=== PATIENT | male | born 1995 | race African-American/Black ===

== ENCOUNTER 2017-10-09 23:11 | Emergency (ER) | payer SELFPAY ==
[~2017-10-09] VITALS: Ht 185.4 cm; Wt 110.0 kg
[2017-10-09 23:30] VITALS: BP 134/76; PULSE 101; RESP 14; TEMP 98.7; O2SAT 99
== END 2017-10-10 01:13 | disposition left against medical advice (07) ==
LOC: NEDAMB 23:11
DX: Z04.9 Encounter for examination and observation for unspecified reason (principal)
CPT/HCPCS: 99281

== ENCOUNTER 2018-08-02 13:14 | Observation (INO) ==
[2018-08-02] MEDS ORDERED: Lidocaine 1%/Epinephrine 1:100,000 Inj 20 ML Vial INFILTRATN ONE (13:17)
[2018-08-02] MEDS ORDERED: Tetanus/Diphtheria Toxoid Adult Vaccine Inj 0.5 ML Vial IM ONE (13:34)
--- NOTE | 2018-08-02 13:52 | ED ---
HPI General Chief Complaint: Wound/Laceration Stated Complaint: Injury Time Seen by Provider: 08/02/18 13:16 Source: patient Mode of arrival: ambulatory Limitations: no limitations History of Present Illness HPI narrative: 22-year-old male patient presents to the ER today because he states that he had punched through glass and has a laceration to his right forearm area. There is significant bleeding and large laceration there. He denies any other issues or injuries. Related Data Allergies Allergy/AdvReac Type Severity Reaction Status Date / Time No Known Allergies Allergy Unverified 10/10/17 01:08 Review of Systems ROS: all other systems reviewed are negative FORMERLY [facility] Medical History Medical History Fractured skull (Acute) Social History Social History Substance History: Active Abuse Second Hand Smoke Exposure: Yes Smoking Status: Current every day smoker Tobacco Type: Cigarettes How Often Do You Have a Drink Containing Alcohol: 2 to 3 times a week Recent Travel in [facility] within the Last 8 Weeks: No Recent Out of Country Travel within the Last 8 Weeks: No Substance Abuse Detail Marijuana: Substance Use Status: Active Route Used Substance Abuse: Inhalation Last Used: weekly Immunization History Tetanus Immunization: Unsure Hx Influenza Vaccine This Season: No Exam Narrative Exam Narrative: GENERAL: Well-nourished, well-developed young male patient in mild distress. Awake and oriented 3. SKIN: Focused skin assessment warm/diaphoretic. HEAD: Normocephalic. EYES: No scleral icterus. No injection or drainage. NECK: Supple, trachea midline. No JVD or lymphadenopathy. CARDIOVASCULAR: Regular rate and rhythm without murmurs, gallops, or rubs. RESPIRATORY: Breath sounds equal bilaterally. No accessory muscle use. GASTROINTESTINAL: Abdomen soft, non-tender, nondistended. MUSCULOSKELETAL: No cyanosis, or edema. Right forearm laceration: There is notable muscle belly and tendon seen and the initial evaluation of the laceration. Bleeding from the muscle belly. Positive radial pulses. He has weakness of the fourth and fifth digit flexion. Decreased sensation over the fourth and fifth digit. BACK: Nontender without obvious deformity. No CVA tenderness. Procedures Laceration Laceration 1: Site: upper extremity Side (If applicable): right Size (cm): 5 Description: irregular and contaminated Depth: simple, single layer, involves muscle layer and involves tendon Anesthetic used: lidocaine 1% Anesthesia technique:: local infiltration Amount (mL): 10 Pre-repair:: wound explored and irrigated extensively Muscle layer closed with: vicryl Size:: 3-0 Number of sutures: 1 Technique:: horizontal mattress Course Initial Documented Vital Signs Pulse Rate 111 H 08/02/18 13:20 Respiratory Rate 18 08/02/18 13:20 Blood Pressure 139/75 08/02/18 13:20 Pulse Oximetry 97 08/02/18 13:20 Last Documented Vital Signs Pulse Rate 71 08/02/18 14:45 Respiratory Rate 18 08/02/18 14:45 Blood Pressure 141/69 H 08/02/18 14:45 Pulse Oximetry 100 08/02/18 14:45 Medical Decision Making MDM Narrative Medical decision making narrative: Right forearm laceration with likely tendon injury. Case is discussed with Dr. Macias of hand surgery, and he states that he would do an x-ray to rule out foreign body, and would like to have the laceration cleaned out and repaired in the ER, foreign body removed, and patient to be sent into his clinic for follow-up. However, after my PA began exploring the wound, x-ray shows foreign body, and foreign body was removed, there was notable bleeding which appears to be brisk, had restarted, and is pulsatile in nature which makes me think that there may be an arterial injury. Case is once again discussed with Dr. Macias and at this point, he asked me to try a tourniquet for 15 minutes with direct pressure on the patient to see if the bleeding will resolved. It did not, and he had asked me to repair the patient for the OR, planning to admit the patient to same -day surgery under his service. Medical Screen Exam Complete: Yes Emergency Medical Condition: Yes Lab Data Result diagrams: 08/02/18 14:44 08/02/18 14:44 Lab Results 08/02/18 08/02/18 08/02/18 Range/Units 14:44 14:44 14:44 WBC 10.7 (4.0-11.0) th/mm3 RBC 4.63 (4.50-5.90) mil/mm3 Hgb 14.0 (13.0-17.0) gm/dL Hct 41.0 (39.0-51.0) % MCV 88.6 (80.0-100.0) fL MCH 30.3 (27.0-34.0) pg MCHC 34.2 (32.0-36.0) % RDW 14.2 (11.6-17.2) % Plt Count 152 (150-450) th/mm3 MPV 11.0 (7.0-11.0) fL Neut % (Auto) 79.9 H (16.0-70.0) % Lymph % (Auto) 12.1 (9.0-44.0) % [place] % (Auto) 5.9 (0.0-8.0) % Eos % (Auto) 1.4 (0.0-4.0) % Baso % (Auto) 0.7 (0.0-2.0) % Neut # (Auto) 8.5 H (1.8-7.7) th/mm3 Lymph # (Auto) 1.3 (1.0-4.8) th/mm3 [place] # (Auto) 0.6 (0.0-0.9) th/mm3 Eos # (Auto) 0.1 (0.0-0.4) th/mm3 Baso # (Auto) 0.1 (0.0-0.2) th/mm3 WBC Differential . Differential Comment Auto diff final PT 10.8 (9.8-11.6) sec INR 1.1 Ratio Sodium 145 (136-145) meq/L Potassium 3.4 L (3.5-5.1) meq/L Chloride 109 H (98-107) meq/L Carbon Dioxide 25.4 (21.0-32.0) meq/L Anion Gap 11 (5-15) meq/L BUN 8 (7-18) mg/dL Creatinine 1.14 (0.60-1.30) mg/dL Estimated GFR Greater than 89 (>89) mL/min Random Glucose 110 H (74-106) mg/dL Calcium 8.8 (8.5-10.1) mg/dL Imaging Data Radiologist's impression: Forearm X-Ray 08/02/18 13:32 CONCLUSION: Large piece apparent glass in the laceration. Discharge Plan Discharge Disposition Patient Disposition: Discharge Home Discharge Condition Condition: Stable Discharge Details Anticipated Discharge Date: 08/02/18 Diagnosis: Flexor tendon laceration, wrist, open wound Physicians Team ED Provider: Norma Henriquez ED Midlevel Provider: Chester Sutton Primary Care Provider: Primary Care Nichole Mohan Attending Provider: Jostin Brice Status ED Status: Admitted Patient
--- NOTE | 2018-08-02 14:11 | XR ---
EXAM DATE: 08/02/2018 1:54 PM EDT AGE/SEX: 22 years / Male INDICATIONS: Right forearm after punching a window today. Evaluate for foreign body. CLINICAL DATA: This is the patient's initial encounter. Patient reports that signs and symptoms have been present for 1 day and indicates a pain score of 7/10. MEDICAL/SURGICAL HISTORY: None. None. COMPARISON: No prior exams available for comparison. FINDINGS: Radiopaque foreign body in the laceration consistent with glass. There is no fracture. CONCLUSION: Large piece apparent glass in the laceration. Electronically signed by: Luis Smith MD 08/02/2018 2:09 PM EDT
[2018-08-02] MEDS ORDERED: Sod Chloride 0.9% Inj 1,000 ML IV.SIG SCH (14:30)
[2018-08-02] MEDS ORDERED: Neomycin/Polymyxin G.U. Irrigant 1 ML Ampul ONE (14:55)
[2018-08-02 15:40] LABS: Baso # (Auto) 0.1 th/mm3 (0.0-0.2); Baso % (Auto) 0.7 % (0.0-2.0); Eos # (Auto) 0.1 th/mm3 (0.0-0.4); Eos % (Auto) 1.4 % (0.0-4.0); Lymph # (Auto) 1.3 th/mm3 (1.0-4.8); Lymph % (Auto) 12.1 % (9.0-44.0); Mean Corpuscular HGB Conc 34.2 % (32.0-36.0); Mean Corpuscular Hemoglobin 30.3 pg (27.0-34.0); Mean Corpuscular Volume 88.6 fL (80.0-100.0); Mono # (Auto) 0.6 th/mm3 (0.0-0.9); Mono % (Auto) 5.9 % (0.0-8.0); Neut # (Auto) 8.5 th/mm3 (1.8-7.7); Neut % (Auto) 79.9 % (16.0-70.0); Platelet Count 152 th/mm3 (150-450); Red Blood Count 4.63 mil/mm3 (4.50-5.90); Red Cell Distribution Width 14.2 % (11.6-17.2); White Blood Count 10.7 th/mm3 (4.0-11.0)
[2018-08-02 15:48] LABS: INR 1.1 Ratio; Prothrombin Time 10.8 sec (9.8-11.6)
[2018-08-02] MEDS ORDERED: Succinylcholine Inj 100 MG/5 ML Syringe IV.PUSH ONE (15:55)
[2018-08-02] MEDS ORDERED: Normosol-R pH 7.4 Inj 1,000 ML IV.CONT ONE (15:55)
[2018-08-02] MEDS ORDERED: Glycopyrrolate Inj 1 MG/5 ML Syringe IV.PUSH ONE (15:55)
[2018-08-02] MEDS ORDERED: Neostigmine Inj 5 MG/5 ML Syringe IV.PUSH ONE (15:55)
[2018-08-02] MEDS ORDERED: Lidocaine PF 1% Inj 5 ML Syringe INFILTRATN ONE (15:55)
[2018-08-02 15:56] LABS: Anion Gap 11 meq/L (5-15); Blood Urea Nitrogen 8 mg/dL (7-18); Calcium 8.8 mg/dL (8.5-10.1); Carbon Dioxide 25.4 meq/L (21.0-32.0); Chloride 109 meq/L (98-107); Glomerular Filtration Rate Greater Than 89 mL/min (>89); Glucose,Random 110 mg/dL (74-106); Potassium 3.4 meq/L (3.5-5.1); Sodium 145 meq/L (136-145)
[2018-08-02] MEDS ORDERED: Heparin - SQ 10,000 UNITS/ML Vial ONE (17:07)
[2018-08-02] MEDS ORDERED: Lidocaine 2% Inj 50 ML Vial ONE (18:23)
[2018-08-02] MEDS ORDERED: Bupivacaine PF 0.5% Inj 30 ML Vial ONE (20:00)
[2018-08-02] MEDS ORDERED: Dexamethasone PF Inj 10 MG/ML Vial ONE (20:00)
[2018-08-02] MEDS ORDERED: Morphine Inj 4 MG/ML Vial ONE (20:12)
[2018-08-02] MEDS ORDERED: fentaNYL Citrate Inj 100 MCG/2 ML Ampul ONE (20:12)
[2018-08-02] MEDS: Ketorolac Inj 30 MG/ML (IVP) Vial IV.PUSH SCH (20:30)
[2018-08-02] MEDS ORDERED: Aspirin 325 MG Tablet PO SCH (20:30)
[2018-08-02] MEDS ORDERED: Ketorolac Inj 30 MG/ML (IVP) Vial ONE (20:45)
[2018-08-02] MEDS ORDERED: ceFAZolin Inj 2,000 MG in Sodium Chlor 0.9% Inj 100 ML IV.SIG ONE (21:00)
[2018-08-02] MEDS ORDERED: Morphine Sulfate Inj 2 MG/ML Vial IV.PUSH PRN (21:15)
[2018-08-03] MEDS: Ketorolac Inj 30 MG/ML (IVP) Vial IV.PUSH SCH ×2 (02:14→08:31)
[2018-08-03 05:12] VITALS: O2SAT 97
--- NOTE | 2018-08-03 08:18 | P.PNOP ---
Subjective Interval history: Date of Surgery: 08/02/2018 Right ulnar nerve repair Right ulnar artery repair Right FDS/FDP repair to IF, MF, RF, SF Right FCU repair Wally is doing well this morning. His pain is well controlled. Endorses paresthesias in the ulnar nerve distribution. Physical Exam Vital signs: Vital Signs 08/02/18 13:20 08/02/18 13:24 08/02/18 14:45 Temperature Pulse Rate 111 H 103 H 71 Respiratory Rate 18 18 18 Blood Pressure 139/75 139/75 141/69 H Pulse Oximetry 97 97 100 08/02/18 20:27 08/02/18 20:30 08/02/18 21:01 Temperature 97.2 F L Pulse Rate 101 H 91 H 83 Respiratory Rate 17 10 L 10 L Blood Pressure 124/73 126/70 132/73 Pulse Oximetry 99 100 96 08/02/18 21:15 08/03/18 00:00 08/03/18 04:00 Temperature 97.5 F L 97.4 F L 98.0 F Pulse Rate 75 83 92 H Respiratory Rate 10 L 16 18 Blood Pressure 128/73 132/83 133/63 Pulse Oximetry 99 98 97 Intake & Output 08/02/18 08/03/18 08/03/18 18:59 06:59 18:59 Intake Total 2220 / 2220 Output Total 100 / 100 Balance 2120 / 2120 Weight 122.47 kg 122.47 kg Intake: IV 220 / 220 Ancef Inj 1,000 MG In NS Inj 100 / 100 100 ML @ 200 mls/hr IV.SIG Q8H [facility] Rx#:[id number] Ancef Inj 2,000 MG In NS Inj 120 / 120 100 ML @ 240 mls/hr IV.SIG NOW ONE Rx#:[id number] Anesthesia Amount 1999 / 1999 Output: Estimated Blood Loss 100 / 100 Other: # Voids 3 Weight On Admission 122.47 kg - Constitutional no acute distress - Routine Extremities Exam Comments: Focused evaluation of the right upper extremity demonstrates post-op dorsal blocking splint in tact. Fingers exposed, warm, well perfused. BCR <2s. Dense motor block precludes motor eval. Sensation in tact to median and radial distribution. Diminished to ulnar nerve distribution. Results - Labs CBC & Chem 7: 08/02/18 14:44 08/02/18 14:44 Laboratory Results - last 24 hr 08/02/18 08/02/18 08/02/18 14:44 14:44 14:44 WBC 10.7 RBC 4.63 Hgb 14.0 Hct 41.0 MCV 88.6 MCH 30.3 MCHC 34.2 RDW 14.2 Plt Count 152 MPV 11.0 Neut % (Auto) 79.9 H Lymph % (Auto) 12.1 [place] % (Auto) 5.9 Eos % (Auto) 1.4 Baso % (Auto) 0.7 Neut # (Auto) 8.5 H Lymph # (Auto) 1.3 [place] # (Auto) 0.6 Eos # (Auto) 0.1 Baso # (Auto) 0.1 WBC Differential . Differential Comment Auto diff final PT INR Sodium 145 Potassium 3.4 L Chloride 109 H Carbon Dioxide 25.4 Anion Gap 11 BUN 8 Creatinine 1.14 Estimated GFR Greater than 89 Random Glucose 110 H Calcium 8.8 Blood Type A Positive Blood Type Recheck Required Antibody Screen Negative 08/02/18 14:44 WBC RBC Hgb Hct MCV MCH MCHC RDW Plt Count MPV Neut % (Auto) Lymph % (Auto) [place] % (Auto) Eos % (Auto) Baso % (Auto) Neut # (Auto) Lymph # (Auto) [place] # (Auto) Eos # (Auto) Baso # (Auto) WBC Differential Differential Comment PT 10.8 INR 1.1 Sodium Potassium Chloride Carbon Dioxide Anion Gap BUN Creatinine Estimated GFR Random Glucose Calcium Blood Type Blood Type Recheck Antibody Screen - Imaging Impressions Forearm X-Ray 08/02/18 13:32 CONCLUSION: Large piece apparent glass in the laceration. Assessment and Plan - Ortho Post Op Day # 1 - Assessment and Plan s/p the above procedures. Doing well. Hand well perfused. Sensation diminished, as expected, to ulnar nerve distribution. - NWB to the RUE - Encourage RUE elevation for edema control - Continue ASA x 4 weeks - Multi-modal pain control - Discussed surgery in detail with patient, including partial ulnar nerve lac and multiple tendon involvement. He understands the challenging progonosis for ulnar nerve recovery. - He will follow up in our clinic in 2 weeks for post-op visit. All questions/ concerns addressed.
[2018-08-03 09:00] VITALS: BP 117/67; PULSE 101; RESP 16; TEMP 97.7
--- NOTE | 2018-08-09 08:21 | MP ---
PLEASE SEE OTHER OP REPORT. THIS ONE ENTERED IN ERROR. MTDD
--- NOTE | 2018-08-10 14:02 | MP ---
cc: ,Hipolito Brice DATE OF OPERATION: 08/02/2018 DATE OF SERVICE: 08/02/2018 PREOPERATIVE DIAGNOSES: 1. Right wrist traumatic laceration. 2. Right wrist uncontrolled bleeding secondary to arterial bleed. 3. Right ulnar nerve neurapraxia. POSTOPERATIVE DIAGNOSES: 1. Right forearm traumatic laceration secondary to glass injury. 2. Right ulnar artery laceration at the forearm level. 3. Right ulnar nerve 50% partial laceration at the forearm level. 4. Right flexor carpi ulnaris tendon laceration. 5. Right flexor digitorum superficialis laceration of the index, middle, ring, and small fingers. 6. Right flexor digitorum profundus lacerations, zone 5, of the middle ring, and small fingers. OPERATION PERFORMED: 1. Right forearm exploration of penetrating wound. 2. Right forearm irrigation and debridement of penetrating wound. 3. Right ulnar artery repair at the forearm level. 4. Right ulnar nerve repair at the forearm level. 5. Repair of right flexor carpi ulnaris. 6. Repair of flexor digitorum superficialis tendon to the index, middle, ring, and small fingers. 7. Repair of right extensor flexor digitorum profundus tendon to the middle, ring, and small fingers. 8. Exploration of median nerve. 9. Use of operating room microscopy. SURGEON: Hipolito Mullins MD ANESTHESIA: General. FLUIDS: Per anesthesia record. ESTIMATED BLOOD LOSS: 200 mL. SPECIMENS: None. IMPLANTS: Axogen AxoGuard nerve protector. COMPLICATIONS: None. INDICATIONS FOR PROCEDURE: Please see history and physical for complete details. In summary, Mr. Eastman is a 22-year-old right-hand dominant male. He presented to the [facility] emergency department after punching a glass window. He sustained a traumatic laceration to the volar forearm. Hand surgery consultation was requested. Evaluation was significant for a traumatic laceration extending over the volar forearm with uncontrolled bleeding. He was taken urgently back to the operating room for the above procedures. In the preoperative holding area, we had a thorough discussion with Mr. Eastman regarding recommendations for wound exploration and repair of damaged structures. We discussed that this would involve likely nerve, artery, and tendon. He has significant paresthesias in the ring and small finger. Median nerve sensory examination was intact. A comprehensive motor examination was not able to be obtained secondary to the patient's pain level. We discussed the relative risks, benefits, and expected postoperative course of surgical management. Specifically, we discussed that his injury is a devastating injury and will likely associated with significant challenges. Given the anticipated injury to the ulnar nerve, he may have a lifelong weakness and intrinsic atrophy. Other risks include, but are not limited to, damage to surrounding blood vessels and nerves, infection, wound healing issues, finger stiffness, continued pain, and need for future surgery. After ample opportunity was offered for his questions to be answered and all his questions were answered to his apparent satisfaction. He agreed to proceed with the procedure as per consent. DESCRIPTION PROCEDURE: The patient was identified at the OR front office java developer and the operative site was marked. The patient was then brought back to the operating room under the care of the anesthesiology team and positioned supine on the OR table. All bony prominences were padded. A critical timeout was performed during which the patient's identity, site, and the nature of the procedure was confirmed. General anesthesia was then induced without untoward effect and endotracheal intubation was performed. Prophylactic perioperative antibiotics in the form of cefazolin were administered. The right upper extremity was prepped and draped in the routine strict and sterile fashion using triple prep solution and occlusive draping. The upper extremity was exsanguinated and the pneumatic tourniquet was then inflated to 250 mmHg and remained inflated for the duration of the case of approximately 2 hours and 15 minutes. The laceration extended in an oblique fashion, approximately 8 cm in length, at the level of the mid forearm. The laceration was extended more than an incision both distal and proximal in order to explore the wound. Sharp dissection was carried through skin. Blunt dissection was then continued with curved iris scissors in order to perform a comprehensive evaluation of the penetrating laceration. FINDINGS ARE FOLLOWS: Significant for complete laceration of the flexor digitorum superficialis tendon to the index, middle, ring, and small finger. Flexor digitorum profundus tendon to the middle, ring, and small finger and flexor carpi ulnaris laceration. The FPL, flexor digitorum profundus to the index finger, and flexor carpi radialis remained intact. Additionally, there was a partial laceration involving approximately 50% of the ulnar nerve and a complete transection of the ulnar artery. Following this evaluation attention was turned to debridement of the wound and irrigation. Three liters normal saline solution were run through the wound to perform this irrigation and debridement. Attention was then turned to repair of the ulnar artery. The operating room microscope was brought into the field and positioned appropriately. A background was placed underneath the artery. The artery was transected obliquely, this cut was revised with a pair of sharp serrated scissors. The artery was then placed in a bulldog vascular clamp and approximated. An end-to-end repair of the artery was performed using 8-0 nylon in a simple fashion under microscopic visualization. Prior to the repair, attention was turned to dilation of the vessel with a lacrimal probe. Additionally, dilute heparin was also placed within the vessel to clear additional clot. Prior to repair additionally, the tourniquet was released to ensure that the vessel was perfused and adequately bleeding. The repair was then undertaken again with 8-0 nylon. The vascular clamp was removed and the tourniquet was then let down. There was excellent perfusion across the vessel with no evidence of significant leak or deficits in flow. This completed the ulnar artery repair. Repair of the ulnar nerve was then undertaken. This was also performed under microscopic magnification. The epineurium was reapproximated and then repaired with 8-0 nylon in a simple fashion. This was performed with approximately 5 simple sutures. Then an Axogen AxoGuard nerve protector was then wrapped around the nerve and secured loosely with vascular clamps. This completed the ulnar nerve repair. Attention was then turned to repair of the flexor tendon. The flexor carpi ulnaris tendon was reapproximated and repair was then undertaken with looped 3-0 Supramid. A double modified Stuart stitch was used to facilitate an 8-strand repair of the tendon. Additionally, a simple Stuart stitch was also placed with 3-0 Ethibond suture. Attention was then turned to identification of the flexor digitorum profundus tendon. These tendon slips were then reapproximated to the distal end of the tendon with the fingers in flexion and the wrist in flexion. An end-to-end repair was then undertaken with the tendon stumps appropriately positioned and tendon repair was then undertaken again, with 3 looped Supramid suture. A modified Stuart stitch was again utilized for this repair. The Supramid suture was first placed proximally along the ulnar extent of the tendon then locked. It was shuttled through the proximal tendon, through the distal stump, and then back through the end of the distal tendon. A second 3-0 Supramid was then placed at the distal radial and of the tendon, approximately 1 cm from the stump. It was locked and then shuttled proximally through the distal to proximal end of the stump and back through the proximal end to the site of repair. The double looped suture was then cut and 2 individual knots were then tied to tension the repair. This resulted in excellent reapproximation of the flexor digitorum profundus to the middle finger. This repair was then undertaken again for the flexor digitorum profundus to the middle and then to the small finger. A similar stitch was utilized for both of these repairs. Then, attention was turned to the flexor digitorum superficialis. Again, a modified Stuart stitch was utilized to facilitate this repair. This was performed to the index, middle, ring, and small fingers of digitorum superficialis, tendon flexed. Care was taken to maintain passive flexion of the fingers and passive flexion of the wrist to unload the repair site. This completed the repair of the aforementioned tendons. The wound was then again thoroughly irrigated with normal saline solution. The tourniquet had been let down throughout the duration of the case after the ulnar artery repair. There was evidence of brisk capillary refill to the fingers. The radial pulse was intact, as was the ulnar pulse. There was maintained perfusion across the anastomosis site. Attention was then turned to irrigation of the wound and wound closure. The wound was reapproximated and closed with 3-0 Prolene in a horizontal mattress fashion. A dry sterile dressing consisting of Xeroform, 4 x 4 gauze, burned fluff, and a dorsal blocking splint with the in 15 degrees of flexion, MP joint, 90 degrees of flexion, and PIP and DIP joint approximately 30 degrees of flexion was placed. This completed the case. At the conclusion of the case, all sponge and instrument counts were correct x2. DISPOSITION: The patient was reversed from anesthesia and extubated. He was transferred to the PACU in stable condition. POSTOPERATIVE RECOMMENDATIONS: 1. Strict nonweightbearing to the right upper extremity. 2. Maintain upper extremity elevation for edema control. 3. Maintain upper extremity dressings in place until clinic followup. 4. Plan for clinic followup in 1 week. We will plan for removal of splint at that time with transition to a dorsal blocking splint and early range of motion program of the zone 5 flexor tendon repairs. At this point the care was discussed with the patient's significant other in the PACU. All questions and concerns were addressed to her apparent satisfaction. Hipolito Brice MD, CM/gale , 01:04 PM , 01:32 PM
--- NOTE | 2018-08-29 17:26 | MH ---
cc: Hipolito LYLES DATE OF ADMISSION: 08/02/2018 PHYSICIAN NOTE: The H and P on the patient was completed at the time of service on 08/02/2018. The dictated documentation has been lost within the electronic health record. As such, I am being asked to redictate my history and physical examination that was previously dictated on 08/02/2018. CHIEF COMPLAINT: Right forearm laceration. HISTORY OF PRESENT ILLNESS: Mr. Eastman is a 22-year-old right-hand dominant male who presented to [facility] with complaints of a right volar forearm laceration. He noted that he punched a glass window, resulting in a deep penetrating laceration to the volar forearm. Orthopedic Hand Surgery consultation was requested. I met Mr. Eastman in the preoperative holding area, transferred from the ER today to the OR suite for uncontrolled bleeding. On evaluation, he had significant pain to the right upper extremity with a tourniquet in place to control the bleeding. He additionally was noted to have paresthesias globally about the hand. Tetanus and antibiotics were provided in the emergency department. PAST MEDICAL HISTORY: None. PAST SURGICAL HISTORY: None. MEDICATIONS: None. ALLERGIES: NONE. FAMILY HISTORY: Noncontributory. SOCIAL HISTORY: Endorses tobacco use. Endorses social alcohol use. PHYSICAL EXAMINATION: GENERAL: He is alert and oriented x3 with a normal mood and affect. MUSCULOSKELETAL: Focused evaluation of the right upper extremity demonstrates limited exam given the patient's pain complaints. Sensation is diminished to the median, radial, and ulnar nerve distribution. Motor strength is unable to be evaluated given associated pain. With a tourniquet in place, there is no palpable radial or ulnar pulse. CARDIOVASCULAR: Regular rate and rhythm. LUNGS: Nonlabored breathing. PSYCHIATRIC: Normal mood and affect. NEUROLOGIC: As per above in musculoskeletal. ABDOMEN: Flat, nondistended. ASSESSMENT: Right forearm traumatic laceration secondary to penetrating glass injury. POSTOPERATIVE FINDINGS: 1. Right ulnar artery laceration. 2. Right ulnar nerve 50% partial laceration. 3. Right flexor carpi ulnaris tendon laceration. 4. Right flexor digitorum superficialis laceration of the index, middle, ring, and small fingers. 5. Right flexor digitorum profundus laceration, zone 5 of the middle, ring, and small fingers. PLAN: I had a thorough discussion with Mr. Eastman preoperatively regarding our recommendations for take back to the operating room for wound exploration and repair of possible nerve, arteries, and tendons. We discussed that should there be an ulnar nerve involvement, that this is a devastating injury and will likely compromise his hand function long-term. We discussed the relevant risks, benefits, and expected postoperative course of surgical management. Please see operative note regarding full details of informed consent, Specifically, we did discuss that outcomes of nerve repair are often limited and that despite nerve repair that he may not regain motor or sensory function to the right upper extremity. This may necessitate a tendon transfer in the future in order to regain hand intrinsic function. We also discussed the importance of postoperative compliance with hand therapy. We discussed that he is likely to need significant therapy in order to prevent long lasting stiffness to the tendons. He understood this discussion. All questions and concerns were addressed to his apparent satisfaction. Postoperatively, he will be admitted to the hospital. He will be started on anticoagulation in the form of aspirin given the planned artery repair. All questions and concerns were addressed as per above. Plan for OR this evening with Mr. Eastman. Hipolito Brice MD, CM/paty , 04:55 PM , 05:05 PM
== END 2018-08-03 10:06 | disposition home or self-care (01) ==
LOC: NEPC 13:14 → HSDC 15:41 → HSDI 15:41 → HSDC 16:53 → N06 21:20
PROVIDERS: ADMIT Orthopaedic Surgery; ATTEND Orthopaedic Surgery